=== PATIENT | male | born 1950 | race Two or more races ===

== ENCOUNTER 2022-08-24 11:04 | Emergency (ER) | payer OTHER ==
[~2022-08-24] VITALS: Ht 167.6 cm; Wt 63.0 kg
[2022-08-24] MEDS ORDERED: IBUPROFEN 400MG TABLET PO ONE (11:45)
[2022-08-24 12:03] VITALS: BP 156/99
[2022-08-24] MEDS ORDERED: LIDO700A15 TP (12:39)
[2022-08-24] MEDS ORDERED: IBUP-2028 PO (12:39)
== END 2022-08-24 13:20 | disposition home or self-care (01) ==
LOC: ER 11:04
DX: S22.32XA Fracture of one rib, left side, initial encounter for closed fracture (principal); W18.39XA Other fall on same level, initial encounter; Y93.89 Activity, other specified; Y92.89 Other specified places as the place of occurrence of the external cause; Y99.8 Other external cause status; Z90.49 Acquired absence of other specified parts of digestive tract
CPT/HCPCS: 71101; 99283